=== PATIENT | female | born 1990 | race African-American/Black ===

== ENCOUNTER 2019-06-23 15:42 | Emergency (ER) | payer OTHER ==
[2019-06-23 15:54] VITALS: BMI 37.1
--- NOTE | 2019-06-23 15:56 | PDOC ---
Rapid Medical Evaluation Chief Complaint: Lightheaded Time Seen by Provider: 06/23/19 15:54 Medical Evaluation: Allergies Allergy/AdvReac Type Severity Reaction Status Date / Time No Known Drug Allergies Allergy Verified 06/23/19 15:54 Vital Signs Temp Pulse Resp BP Pulse Ox 98.2 F 92 H 18 145/71 99 06/23/19 15:52 06/23/19 15:52 06/23/19 15:52 06/23/19 15:52 06/23/19 15:52 06/23/19 15:55 I have performed a brief in-person evaluation of this patient. The patient presents with a chief complaint of:dizziness w/ weakness and nausea x 3 days Pertinent physical exam findings:stable and well nita I have ordered the following:ekg/upreg The patient will proceed to the ED for further evaluation. Discharge Disposition - Diagnosis Dizzy - Referrals - Patient Instructions - Post Discharge Activity
[2019-06-23] MEDS ORDERED: ONDANSETRON 4 MG TABLET PO ONE (17:13)
[2019-06-23] MEDS ORDERED: MAG HYDROX/AL HYDROX/SIMETH 30 ML UNIT-DOSE CUP PO ONE (17:13)
[2019-06-23] MEDS ORDERED: RANITIDINE HCL 150 MG TABLET (FP) PO ONE (17:13)
--- NOTE | 2019-06-23 17:16 | PDOC ---
History of Present Illness - General Chief Complaint: Lightheaded Stated Complaint: DIZZINESS Time Seen by Provider: 06/23/19 15:54 - History of Present Illness Initial Comments: 06/23/19 17:14 28 yo F with h/o cholecystectomy who p/w epigastria pain. Patient reports three days of sharp, epigastria pain, aggravated with PO solid intake. Patient pain lasting for 30 minutes a and resolving spontaenosuly. Denies h/o similar pain. Also endorses nausea without vomiting worse with PO intake. Intermittent lightheadedness x 3 days, with no identifiable triggers resolving after seconds. Nml bowel habits, daily bowel movements. Patient denies BUSH, vision change, palpitations, cough, wheezing, orthopena, PND , leg swelling/pain, F,C, CP, SOB, urinary complaints, hematuria, BPR,diarrhea , constipation, weakness, sensory changes. PMHx: as noted above. Reports h/o unremarkable endosocopy. Denies PPI therapy or chronic NSAID use Surgical: x 2, Cholecystectomy ROS: as noted SHx: Denies Etoh, IVDA, tobacco use Allergies: NKDA Past History - Past Medical History Allergies/Adverse Reactions: Allergies Allergy/AdvReac Type Severity Reaction Status Date / Time No Known Drug Allergies Allergy Verified 06/23/19 15:54 Home Medications: Ambulatory Orders Amox-Tr/K Cl [Augmentin 875Mg Tablet] 1 tab PO BID #20 tablet 02/29/16 Ibuprofen 800 mg PO TID #30 tablet 02/29/16 Ranitidine [Zantac -] 150 mg PO BID 15 Days #30 tablet MDD 2 tab 06/23/19 Anemia: No Asthma: No Cancer: No Cardiac Disorders: No CVA: No COPD: No CHF: No Dementia: No Diabetes: No GI Disorders: No Disorders: No HTN: No Hypercholesterolemia: No Liver Disease: No Seizures: No Thyroid Disease: No - Surgical History Abdominal Surgery: No Appendectomy: No Cardiac Surgery: No Cholecystectomy: No Lung Surgery: No Neurologic Surgery: No Orthopedic Surgery: No - Reproductive History (#): 4 Para: 1 Therapeutic (s) & number: Yes Spontaneous : 1 - Immunization History Immunization Up to Date: Yes - Suicide/Smoking/Psychosocial Hx Smoking Status: No Smoking History: Never smoked Have you smoked in the past 12 months: No Number of Cigarettes Smoked Daily: 0 Hx Alcohol Use: No Drug/Substance Use Hx: No Hx Substance Use Treatment: No Review of Systems - Review of Systems Comments:: 06/23/19 18:05 GENERAL/CONSTITUTIONAL: No fever or chills. No weakness. HEAD, EYES, EARS, NOSE AND THROAT: No change in vision. No ear pain or discharge. No sore throat. CARDIOVASCULAR: No chest pain or shortness of breath RESPIRATORY: No cough, wheezing, or hemoptysis. GASTROINTESTINAL:+ Abdominal pain, nausea,. No diarrhea or constipation. GENITOURINARY: No dysuria, frequency, or change in urination. MUSCULOSKELETAL: No joint or muscle swelling or pain. No neck or back pain. SKIN: No rash NEUROLOGIC: +lightheadedness. No headache, vertigo, loss of consciousness, or change in strength/sensation. ENDOCRINE: No increased thirst. No abnormal weight change HEMATOLOGIC/LYMPHATIC: No anemia, easy bleeding, or history of blood clots. ALLERGIC/IMMUNOLOGIC: No hives or skin allergy. *Physical Exam - Vital Signs Last Vital Signs Temp Pulse Resp BP Pulse Ox 98.2 F 92 H 18 145/71 99 06/23/19 15:52 06/23/19 15:52 06/23/19 15:52 06/23/19 15:52 06/23/19 15:52 - Physical Exam Comments: 06/23/19 18:05 GENERAL: Awake, alert, and fully oriented, in no acute distress HEAD: No signs of trauma, normocephalic, atraumatic EYES: PERRLA, EOMI, sclera anicteric, conjunctiva clear ENT: Auricles normal inspection, hearing grossly normal, nares patent, oropharynx clear without exudates. Moist mucosa NECK: Normal ROM, supple, no lymphadenopathy, JVD, or masses LUNGS: No distress, speaks full sentences, clear to auscultation bilaterally HEART: Regular rate and rhythm, normal S1 and S2, no murmurs, rubs or gallops, peripheral pulses normal and equal bilaterally. ABDOMEN: + Epigastric ttp. Soft, NDS, normoactive bowel sounds. No guarding, no rebound. No masses. Neg CVA ttp. EXTREMITIES : Normal inspection, Normal range of motion, no edema. No clubbing or cyanosis. NEUROLOGICAL: Cranial nerves II through XII grossly intact. Normal speech, normal gait, no focal sensorimotor deficits SKIN: Warm, Dry, normal turgor, no rashes or lesions noted ED Treatment Course - LABORATORY CBC & Chemistry Diagram: 06/23/19 18:00 06/23/19 18:00 Medical Decision Making - Medical Decision Making 06/23/19 18:03 28 yo F with h/o cholecystectomy who p/w epigastria pain with PO intake, and nausea without vomitting x 3 days. Vitals wnl, AF. Physical exam notable for epigastria ttp. Will consider gastritis, esophagitis, enteritis, colitis, pancreatitis, biliary dz., PUD, constipation, ACS. Will provide analgesic and anti-emeitc control and reassess. ED Course : Ranitidine, Zofran, Maloox Advised pt. to f/u GI 06/23/19 19:02 Laboratory Tests 06/23/19 06/23/19 06/23/19 16:48 16:48 18:00 WBC 11.8 H Hgb 11.6 Hct 37.4 D Plt Count 247 Sodium Potassium BUN Creatinine Total Bilirubin AST ALT Alkaline Phosphatase Lipase Urine Color Yellow Urine Blood Negative Urine Nitrite Negative Ur Leukocyte Esterase Trace Urine HCG, Qual Negative 06/23/19 18:00 WBC Hgb Hct Plt Count Sodium 140 Potassium 4.7 BUN 13.2 Creatinine 0.8 Total Bilirubin 0.2 AST 21 ALT 35 Alkaline Phosphatase 74 Lipase 101 Urine Color Urine Blood Urine Nitrite Ur Leukocyte Esterase Urine HCG, Qual EKG: NSR with absent NITHYA, STD. Nml interval durations and axis. Neg Q waves, R wave progression nml. Pt. stable, tolerating PO intake Stable for d/c with return precautions. Advised to f/u GI *DC/Admit/Observation/Transfer Diagnosis at time of Disposition: Dyspepsia, Epigastric pain - Prescriptions Prescriptions: Ranitidine [Zantac -] 150 mg PO BID 15 Days #30 tablet MDD 2 tab - Referrals Referrals: Clair Bernardo MD [Primary Care Provider] - Nuno Carias DO [Staff Physician] - Jesus uTrk MD [Staff Physician] - - Patient Instructions Printed Discharge Instructions: DI for Epigastric Pain Additional Instructions: Please return to the emergency department with any new or worsening symptoms or concerns. Please follow up with your primary care physician and gauger chief delivery within 72 hours. You can take Ranitidine 150 mg two times a day as needed. - Post Discharge Activity
[2019-06-23 17:30] LABS: EPI CELLS 4.2 /HPF (0-5/HPF); HYALINE CASTS 0 /lpf (0-8); URINE APPEARANCE CLOUDY; URINE BACTERIA 100.2 /hpf (NEGATIVE); URINE BILIRUBIN NEGATIVE (NEGATIVE); URINE COLOR YELLOW; URINE GLUCOSE (UA) NEGATIVE (NEGATIVE); URINE KETONE NEGATIVE (NEGATIVE); URINE LEUK ESTERASE TRACE (NEGATIVE); URINE NITRITE NEGATIVE (NEGATIVE); URINE PROTEIN NEGATIVE (NEGATIVE); URINE RBC 3 /hpf (0-4); URINE WBC 4 /hpf (0-5)
[2019-06-23] MEDS ORDERED: ONDANSETRON *ODT* 4 MG TABLET ONE (17:56)
[2019-06-23] MEDS ORDERED: RANITIDINE HCL 150 MG TABLET (FP) ONE (17:56)
[2019-06-23] MEDS ORDERED: MAG HYDROX/AL HYDROX/SIMETH 30 ML UNIT-DOSE CUP ONE (17:57)
[2019-06-23 18:17] LABS: BASO % 0.6 % (0-2.0); EOS % 1.1 % (0-4.5); HEMATOCRIT 37.4 % (32.4-45.2); HEMOGLOBIN 11.6 GM/dL (10.7-15.3); LYMPH % 27.7 % (8-40); MCH 22.7 pg (25.7-33.7); MCHC 30.8 g/dl (32.0-36.0); MEAN CELL VOLUME 73.6 fl (80-96); MEAN PLT VOLUME 9.3 fl (7.5-11.1); MONO % 7.8 % (3.8-10.2); NEUT % 62.8 % (42.8-82.8); PLATELET COUNT 247 K/MM3 (134-434); RBC 5.09 M/mm3 (3.60-5.2); RDW 15.9 % (11.6-15.6); WHITE BLOOD COUNT 11.8 K/mm3 (4.0-10.0)
[2019-06-23 18:48] LABS: ALBUMIN 3.7 g/dl (3.4-5.0); ALK PHOS 74 U/L (45-117); ANION GAP 7 MMOL/L (8-16); BILIRUBIN,TOTAL 0.2 mg/dL (0.2-1); BLOOD UREA NITROGEN 13.2 mg/dL (7-18); CALCIUM 9.3 mg/dL (8.5-10.1); CHLORIDE 107 mmol/L (98-107); CO2 26 mmol/L (21-32); CREATININE 0.8 mg/dL (0.55-1.3); GLUCOSE,RANDOM 98 mg/dL (74-106); LIPASE 101 U/L (73-393); POTASSIUM 4.7 mmol/L (3.5-5.1); SGOT/AST 21 U/L (15-37); SGPT/ALT 35 U/L (13-61); SODIUM 140 mmol/L (136-145); TOT PROT 7.8 g/dl (6.4-8.2)
--- NOTE | 2019-06-23 19:11 | PDOC ---
Documentation entered by Jaye Siddiqui SCRIBE, acting as scribe for Missy Denny DO. Missy Denny DO: This documentation has been prepared by the Artur barriga Sammi, SCRIBE, under my direction and personally reviewed by me in its entirety. I confirm that the documentation accurately reflects all work, treatment, procedures, and medical decision making performed by me. Attending Attestation - Resident Resident Name: Mariusz Yaoson - ED Attending Attestation I have performed the following: I have examined & evaluated the patient, The case was reviewed & discussed with the resident, I agree w/resident's findings & plan, Exceptions are as noted - HPI HPI: 06/23/19 18:28 The patient is a 28 year old female, with a significant PMH of cholecystectomy, who presents for evaluation of 3 days of sharp, intermittent, epigastric pain with associated nausea. The patient reports the pain is exacerbated when eating. She also notes 3 days of lightheadedness with unknown aggravating factors. Denies chest pain, SOB, fever, chills, constipation, diarrhea, or urinary complaints. Allergies: NKDA Surgical history: cholecystectomy, negative endoscopy, C-sec x2 PCP: [facility] - Physicial Exam PE: 06/23/19 18:32 GENERAL: In no acute distress NECK: Normal ROM, supple, no lymphadenopathy, JVD, or masses LUNGS: Breath sounds equal, clear to auscultation bilaterally. No wheezes, and no crackles HEART: Regular rate and rhythm, normal S1 and S2, no murmurs, rubs or gallops ABDOMEN: Soft, nontender, normoactive bowel sounds. No guarding, no rebound. No masses EXTREMITIES: Normal range of motion, no edema. No clubbing or cyanosis. No cords, erythema, or tenderness NEUROLOGICAL: Awake, alert, oriente. Normal speech, normal gait SKIN: Warm, Dry, normal turgor, no rashes or lesions noted. - Medical Decision Making 06/23/19 19:07 I, Dr. Missy Denny DO, attest that this document has been prepared under my direction and personally reviewed by me in its entirety. I further attest, that it accurately reflects all work, treatment, procedures and medical decision -making performed by me. 06/23/19 19:07 a/p: 28yo female with no pmhx c/o epigastric pain after eating -assoc nausea, no vomiting -no diarrhea -no recent infections or abx -did have unprotected intercourse 2 weeks [address] [place] with her - trying to get preg and is wondering if she is preg -no cva ttp -no uti symptoms or vaginal complaints -last bm this AM and normal -pt without abd pain on exam -will send labs, ekg, nontoxic in appearance -will give gi meds and monitor 06/23/19 19:11 hcg neg labs reviewed pt tolerated po intake Heart Score/ECG Review - ECG Intrepretation Comment:: 06/23/19 19:18 sinus at 70, nl axis, nl interval, no acute st/t wave findings
[2019-06-23 19:58] VITALS: BP 128/75; PULSE 79; TEMP 98.8
--- NOTE | 2019-06-24 10:32 | EKG ---
Test Reason : Blood Pressure : / mmHG Vent. Rate : 070 BPM Atrial Rate : 070 BPM P-R Int : 154 ms QRS Dur : 082 ms QT Int : 390 ms P-R-T Axes : 044 051 050 degrees QTc Int : 421 ms NORMAL SINUS RHYTHM NORMAL ECG WHEN COMPARED WITH ECG OF 01-MAY-2010 02:21, NO SIGNIFICANT CHANGE WAS FOUND Confirmed by WARD JULIAN MD ([id number]) on 06/24/2019 10:32:09 AM Referred By: Confirmed By:WARD JULIAN MD
== END 2019-06-23 19:58 | disposition home or self-care (01) ==
LOC: JER 15:42
DX: R10.13 Epigastric pain (principal)
CPT/HCPCS: 36415; 80053; 81003; 83690; 84702; 84703; 85025; 93005; 93010; 99283-25

== ENCOUNTER 2021-03-10 12:51 | Emergency (ER) | payer OTHER ==
[2021-03-10 12:57] VITALS: BMI 40.2
[2021-03-10] MEDS ORDERED: SODIUM CHLORIDE 0.9% 500 ML INFUS.BAG IV ONE (13:27)
[2021-03-10] MEDS ORDERED: ACETAMINOPHEN 325 MG TABLET (FP) PO ONE (13:27)
[2021-03-10] MEDS ORDERED: ACETAMINOPHEN 325 MG TABLET (FP) ONE (13:30)
[2021-03-10 13:43] LABS: PH,URINE 6.5 (5.0-8.0); URINE APPEARANCE CLEAR; URINE BILIRUBIN NEGATIVE (NEGATIVE); URINE COLOR YELLOW; URINE GLUCOSE (UA) NEGATIVE (NEGATIVE); URINE KETONE NEGATIVE (NEGATIVE); URINE LEUK ESTERASE NEGATIVE (NEGATIVE); URINE NITRITE NEGATIVE (NEGATIVE); URINE PROTEIN NEGATIVE (NEGATIVE); URINE UROBILINOGEN 0.2 mg/dL (0.2-1.0)
[2021-03-10 13:45] LABS: HCG,QUALITATIVE URINE Negative
[2021-03-10 14:00] LABS: BASO % 0.4 % (0-2.0); EOS % 0.9 % (0-4.5); HEMATOCRIT 33.1 % (32.4-45.2); HEMOGLOBIN 10.8 GM/dL (10.7-15.3); LYMPH % 23.3 % (8-40); MCH 24.5 pg (25.7-33.7); MCHC 32.5 g/dl (32.0-36.0); MEAN CELL VOLUME 75.4 fl (80-96); MEAN PLT VOLUME 9.4 fl (7.5-11.1); MONO % 10.9 % (3.8-10.2); NEUT % 64.5 % (42.8-82.8); PLATELET COUNT 308 K/MM3 (134-434); RBC 4.39 M/mm3 (3.60-5.2); RDW 14.4 % (11.6-15.6); WHITE BLOOD COUNT 9.5 K/mm3 (4.0-10.0)
[2021-03-10 14:22] LABS: ALBUMIN 3.6 g/dl (3.4-5.0); BLOOD UREA NITROGEN 9.5 mg/dL (7-18); CALCIUM 8.5 mg/dL (8.5-10.1); MAGNESIUM 1.9 mg/dL (1.8-2.4)
[2021-03-10 14:25] LABS: CREATININE 0.7 mg/dL (0.55-1.3)
[2021-03-10 14:27] LABS: BILIRUBIN,TOTAL 0.4 mg/dL (0.2-1); TOT PROT 7.2 g/dl (6.4-8.2)
[2021-03-10 16:15] VITALS: BP 128/75; PULSE 74; TEMP 98
== END 2021-03-10 16:43 | disposition home or self-care (01) ==
LOC: JER 12:51
DX: K52.9 Noninfective gastroenteritis and colitis, unspecified (principal)
CPT/HCPCS: 36415; 74177-TC; 80053; 81003; 83735; 84703; 85025; 87086; 99285-25; Q9967

== ENCOUNTER 2023-05-27 20:12 | Emergency (ER) | payer OTHER ==
[2023-05-27 20:22] VITALS: BP 147/88; PULSE 68; RESP 17; TEMP 98.5; BMI 33.3
[2023-05-27] MEDS ORDERED: ACETAMINOPHEN 1000 MG/100 ML BAG IVPB ONE (20:39)
[2023-05-27] MEDS ORDERED: SODIUM CHLORIDE 0.9% 500 ML INFUS.BAG IV ONE (20:39)
[2023-05-27] MEDS ORDERED: ACETAMINOPHEN INJECTION 100 ML IVPB ONE (20:46)
[2023-05-27] MEDS ORDERED: ONDANSETRON 4 MG/2 ML VIAL IVPUSH ONE (20:55)
[2023-05-27] MEDS ORDERED: ONDANSETRON 4 MG/2 ML VIAL ONE (20:56)
[2023-05-27 21:09] LABS: BASO % 0.5 % (0-2.0); EOS % 1.1 % (0-4.5); HEMATOCRIT 28.6 % (32.4-45.2); HEMOGLOBIN 8.7 GM/dL (10.7-15.3); LYMPH % 28.3 % (8-40); MCHC 30.6 g/dl (32.0-36.0); MEAN CELL VOLUME 59.3 fl (80-96); MEAN PLT VOLUME 8.7 fl (7.5-11.1); MONO % 7.5 % (3.8-10.2); NEUT % 62.6 % (42.8-82.8); PLATELET COUNT 295 10^3/uL (134-434); RBC 4.82 M/mm3 (3.60-5.2); RDW 18.8 % (11.6-15.6)
[2023-05-27 21:10] LABS: MCH 18.1 pg (25.7-33.7)
[2023-05-27 21:31] LABS: POTASSIUM 4.2 mmol/L (3.5-5.1)
[2023-05-27 21:32] LABS: CALCIUM 8.7 mg/dL (8.5-10.1)
[2023-05-27 21:33] LABS: BLOOD UREA NITROGEN 15.8 mg/dL (7-18)
[2023-05-27 21:41] LABS: ANISOCYTOSIS 3+; MACROCYTOSIS 0; ROULEAU 1+; TARGET CELLS 2+
[2023-05-27] MEDS ORDERED: KETOROLAC TROMETHAMINE 30 MG/1 ML VIAL ONE (22:19)
[2023-05-27] MEDS ORDERED: KETOROLAC TROMETHAMINE 30 MG/1 ML VIAL IVPUSH ONE (22:19)
[2023-05-28 01:23] LABS: EPI CELLS >36 /uL (0-25.1); HYALINE CASTS 1 /uL (0-3.1); PH,URINE 5.5 (5.0-8.0); URINE APPEARANCE CLEAR; URINE BACTERIA 871 /uL (0-1359); URINE BILIRUBIN NEGATIVE (NEGATIVE); URINE COLOR YELLOW; URINE GLUCOSE (UA) NEGATIVE (NEGATIVE); URINE KETONE TRACE (NEGATIVE); URINE LEUK ESTERASE NEGATIVE (NEGATIVE); URINE NITRITE NEGATIVE (NEGATIVE); URINE PROTEIN NEGATIVE (NEGATIVE); URINE RBC 92 /uL (0-23.9); URINE UROBILINOGEN 0.2 mg/dL (0.2-1.0); URINE WBC 18 /uL (0-25.8)
[2023-05-28 02:01] LABS: HCG,QUALITATIVE URINE Negative
== END 2023-05-28 00:38 | disposition home or self-care (01) ==
LOC: JER 20:12
PROC: 3E033NZ Introduction of Analgesics, Hypnotics, Sedatives into Peripheral Vein, Percutaneous Approach (ICD-10-PCS; principal; 2023-05-27)
PROC: 3E033NZ Introduction of Analgesics, Hypnotics, Sedatives into Peripheral Vein, Percutaneous Approach (ICD-10-PCS; 2023-05-27)
PROC: 3E033GC Introduction of Other Therapeutic Substance into Peripheral Vein, Percutaneous Approach (ICD-10-PCS; 2023-05-27)
DX: N20.0 Calculus of kidney (principal)
CPT/HCPCS: 36415; 74176-TC; 80048; 81003; 84703; 85025; 87086; 99284-25

== ENCOUNTER 2024-04-21 20:25 | Emergency (ER) | payer OTHER ==
[2024-04-21 20:42] VITALS: TEMP 98.6; BMI 38.2
[2024-04-21] MEDS ORDERED: FAMOTIDINE 20 MG/50 ML IVPB 20 MG/50 ML MG IVPB ONE (21:36)
[2024-04-21] MEDS ORDERED: ONDANSETRON 4 MG/2 ML VIAL ONE (21:36)
[2024-04-21] MEDS ORDERED: ACETAMINOPHEN INJECTION 100 ML IVPB ONE (21:36)
[2024-04-21] MEDS ORDERED: MAG HYDROX/AL HYDROX/SIMETH 30 ML UNIT-DOSE CUP ONE (21:37)
[2024-04-21] MEDS: FAMOTIDINE 20 MG/50 ML IVPB 20 MG/50 ML MG IVPB ONE (21:56)
[2024-04-21] MEDS: MAG HYDROX/AL HYDROX/SIMETH 30 ML UNIT-DOSE CUP PO ONE (21:56)
[2024-04-21] MEDS: ACETAMINOPHEN 1000 MG/100 ML BAG IVPB ONE (21:56)
[2024-04-21] MEDS: ONDANSETRON 4 MG/2 ML VIAL IVPUSH ONE (21:57)
[2024-04-21 22:08] LABS: BASO % 0.5 % (0-2.0); EOS % 0.2 % (0-4.5); HEMATOCRIT 28.3 % (32.4-45.2); HEMOGLOBIN 8.4 GM/dL (10.7-15.3); LYMPH % 11.9 % (8-40); MCHC 29.6 g/dl (32.0-36.0); MEAN CELL VOLUME 54.7 fl (80-96); MEAN PLT VOLUME 8.9 fl (7.5-11.1); MONO % 5.3 % (3.8-10.2); NEUT % 82.1 % (42.8-82.8); PLATELET COUNT 319 10^3/uL (134-434); RBC 5.18 M/mm3 (3.60-5.2); RDW 19.6 % (11.6-15.6); WHITE BLOOD COUNT 14.6 K/mm3 (4.0-10.0)
[2024-04-21] MEDS: LACTATED RINGERS SOLUTION 1000 ML INFUS.BAG IV ONE (22:27)
[2024-04-21 22:41] LABS: POTASSIUM 3.9 mmol/L (3.5-5.1)
[2024-04-21 22:43] LABS: CALCIUM 8.4 mg/dL (8.5-10.1)
[2024-04-21 22:44] LABS: ALBUMIN 3.6 g/dl (3.4-5.0); BLOOD UREA NITROGEN 12.5 mg/dL (7-18); MAGNESIUM 1.6 mg/dL (1.8-2.4)
[2024-04-21 22:47] LABS: CREATININE 0.8 mg/dL (0.55-1.3)
[2024-04-21 22:48] LABS: MCH 16.2 pg (25.7-33.7); TOT PROT 7.8 g/dl (6.4-8.2)
[2024-04-21 22:49] LABS: BILIRUBIN,TOTAL 0.5 mg/dL (0.2-1)
[2024-04-21] MEDS ORDERED: MAGNESIUM 1GM/D5W - 1 GM/100 ML IVPB IVPB ONE (23:07)
[2024-04-21] MEDS: MAGNESIUM SULF 50% (8.12 MEQ/2 ML-1 GM VIAL) IVPB ONE (23:10)
[2024-04-21 23:33] LABS: ANISOCYTOSIS 3+; MACROCYTOSIS 0; OVALOCYTE 1+
[2024-04-22 00:30] VITALS: BP 102/78; PULSE 68; RESP 15
== END 2024-04-22 00:32 | disposition home or self-care (01) ==
LOC: JER 20:25
PROC: 3E033GC Introduction of Other Therapeutic Substance into Peripheral Vein, Percutaneous Approach (ICD-10-PCS; principal; 2024-04-21)
PROC: 3E033GC Introduction of Other Therapeutic Substance into Peripheral Vein, Percutaneous Approach (ICD-10-PCS; 2024-04-21)
PROC: 3E033GC Introduction of Other Therapeutic Substance into Peripheral Vein, Percutaneous Approach (ICD-10-PCS; 2024-04-21)
PROC: 3E033NZ Introduction of Analgesics, Hypnotics, Sedatives into Peripheral Vein, Percutaneous Approach (ICD-10-PCS; 2024-04-21)
DX: R10.13 Epigastric pain (principal); R11.2 Nausea with vomiting, unspecified; R19.7 Diarrhea, unspecified; Z20.822 Contact with and (suspected) exposure to COVID-19
CPT/HCPCS: 0241U-QW; 36415; 71046-TC-FY; 80053; 83690; 83735; 84703; 85025; 99291; J0131

== ENCOUNTER 2025-02-07 12:12 | Emergency (ER) | payer OTHER ==
[2025-02-07 12:26] VITALS: BP 129/86; RESP 20; TEMP 98.9; BMI 36.4
[2025-02-07] MEDS ORDERED: PSEUDOEPHEDRINE HCL 60 MG TABLET ONE (13:12)
[2025-02-07] MEDS ORDERED: ONDANSETRON *ODT* 4 MG TABLET ONE (13:16)
[2025-02-07] MEDS ORDERED: ACETAMINOPHEN 500 MG TABLET (FP) ONE (13:16)
[2025-02-07] MEDS: ACETAMINOPHEN 500 MG TABLET (FP) PO ONE (13:18)
[2025-02-07] MEDS: PSEUDOEPHEDRINE HCL 30 MG TABLET PO ONE (13:18)
[2025-02-07] MEDS: ONDANSETRON *ODT* 4 MG TABLET SL ONE (13:18)
[2025-02-07 16:23] VITALS: PULSE 100
== END 2025-02-07 14:39 | disposition home or self-care (01) ==
LOC: JERFT 12:12
DX: J10.1 Influenza due to other identified influenza virus with other respiratory manifestations (principal); R05.9 Cough, unspecified; R00.0 Tachycardia, unspecified; R09.81 Nasal congestion; M79.10 Myalgia, unspecified site; R51.9 Headache, unspecified; J34.89 Other specified disorders of nose and nasal sinuses; R11.0 Nausea; R63.8 Other symptoms and signs concerning food and fluid intake
CPT/HCPCS: 0241U-QW; 93005; 93010; 99284-25; Q0162